=== PATIENT | male | born 1965 | race Caucasian/White ===

== ENCOUNTER → 2018-08-01 15:46 | Outpatient (CLI) | payer BC, SELFPAY | PROVIDERS: PCP Family Medicine; Visit Provider Family Medicine | DX: G47.30 Sleep apnea, unspecified (principal); R06.83 Snoring | CPT/HCPCS: 95806 ==

== ENCOUNTER 2023-07-10 16:04 | Outpatient (CLI) | payer BC, OTHER, SELFPAY | END 2023-07-10 23:59 | PROVIDERS: PCP Family Medicine; Visit Provider Family Medicine | DX: I49.9 Cardiac arrhythmia, unspecified (principal) | CPT/HCPCS: 93270 ==